=== PATIENT | male | born 1945 | race Caucasian/White ===

== ENCOUNTER 2016-07-11 21:05 | Inpatient (IN) ==
--- NOTE | 2016-07-11 21:48 | Emergency Department Note ---
Addendum entered and electronically signed by Gerard Amos DO 07/11/16 23:03 : Accepted by Dr nSider for admission Original Note: Disposition Clinical Impression: Cough Chest pain Qualifiers: Chest pain type: unspecified Qualified Code(s): R07.9 - Chest pain, unspecified Syncope Qualifiers: Syncope type: unspecified Qualified Code(s): R55 - Syncope and collapse Disposition: Still a Patient Condition: Undetermined General Adult HPI - General Chief complaint: ED Chest Pain Stated complaint: chest pain/cough Time Seen by Provider: 07/11/16 21:25 Source: patient, family Limitations: no limitations Nursing Notes Reviewed: Yes Vital Signs Reviewed: Yes - History of Present Illness HPI Narrative: 8-year-old male who reports he had onset of chest pain last night. He said his left side of his chest. He also admits it is pleuritic in nature. His and reports that this morning at 5:30 in the morning he had an episode of syncope after getting up to use the restroom. He does state he hit his head. Since that time he has had decreased level of alertness. He also reports he has had a cough for the last few days. His only current medical problems are diabetes and neuropathy. He takes metformin and glipizide. He denies having a fever, nausea, vomiting, diarrhea, abdominal pain Radiation: non-radiation Pain Severity: moderate Pain Scale: 4 Consistency: constant Improves with: nothing Worsens with: other (deep breath) Associated symptoms: Reports: denies other symptoms Treatments Prior to Arrival: none - Related Data Allergies Allergy/AdvReac Type Severity Reaction Status Date / Time No Known Allergies Allergy Verified 07/11/16 21:10 All systems ED: reviewed and negative except as stated. Constitutional: Denies: fever Eyes: Denies: vision change ENT ED: Denies: throat pain Cardiovascular: Reports: chest pain Respiratory: Reports: cough Gastrointestinal: Denies: abdominal pain, nausea, vomiting Musculoskeletal: Denies: neck pain Integumentary: Denies: rash Endocrine: Reports: fatigue Past Medical History - Past Medical History Medical history: Reports: diabetes, other Psychiatric history: Reports: PTSD - Social History Smoking Status: Never smoker Smokeless Tobacco Status: No Alcohol use: Reports: none Drug use: Reports: none Physical Exam - General Limitations: no limitations General appearance: alert, in no apparent distress - Head Head exam: atraumatic - Eye Eye exam: Present: normal appearance, PERRL, EOMI - ENT ENT exam: normal exam, normal oropharynx - Neck Neck exam: Present: normal inspection, full ROM - Chest Chest inspection: Present: normal inspection - Respiratory Respiratory exam: Present: normal lung sounds bilaterally. Absent: respiratory distress - Cardiovascular Cardiovascular exam: Present: regular rate, normal rhythm - Abdominal Exam Abdominal exam: Present: soft, Non-Tender - Extremities Exam Extremities exam: Present: normal inspection - Expanded Lower Extremity Exam Hip/Pelvis exam: Present: normal inspection - Neurological Exam Neurological exam: Present: alert (but fatigued), oriented X3, CN II-XII intact - Skin Skin exam: Present: warm, dry Course Course Narrative: Due to chest pain and syncope I have high index of suspicion for cardiac etiology. I also need to rule out intracranial abnormality after his fall and decreased level of responsiveness. He will get a CT scan of his head and cervical spine in addition to a cardiac workup. I will also draw blood cultures and an ammonia level due to his altered state. His vital signs are stable and he is in no acute distress. His EKG does not show a acute abnormality. - Reevaluation(s) Reevaluation #1: The patient has been signed out to the night team specifically Dr Hernandez. He will follow up on lab results and make final disposition Vital Signs Temperature 99.2 F 07/11/16 21:10 Pulse Rate 96 07/11/16 21:10 Respiratory Rate 16 07/11/16 21:10 Blood Pressure 144/75 07/11/16 21:10 O2 Sat by Pulse Oximetry 97 07/11/16 21:10 Temperature 99.2 F 07/11/16 21:10 Pulse Rate 85 07/11/16 22:52 Respiratory Rate 16 07/11/16 22:52 Blood Pressure 106/54 07/11/16 22:52 O2 Sat by Pulse Oximetry 96 07/11/16 22:52 Oxygen Delivery Oxygen Delivery Room Air Medical Decision Making - Medical Records Medical records reviewed: Yes I reviewed the patient's medical records. - Lab Data Lab results reviewed: Yes I reviewed the patient's lab results. Result diagrams: 07/11/16 21:45 07/11/16 21:45 Lab Results 01/30/17 01/30/17 01/30/17 Range/Units 21:22 21:45 21:45 WBC (4.3-11.1) K/mcL RBC (4.19-5.50) M/mcL Hgb (12.9-16.9) g/dL Hct (37.5-50.1) % MCV (83.0-100.0) fL MCH (28.0-33.3) pg MCHC (31.6-35.5) g/dL RDW (11.5-14.5) % Plt Count (140-400) K/mcL MPV (9.4-12.4) fL Immature Gran % (0-4) % Seg Neutrophils % % Lymphocytes % % Monocytes % % Eosinophils % % Basophils % % Neutrophils # (1.6-8.9) K/mcL Lymphocytes # (0.6-4.6) K/mcL Monocytes # (0.0-1.3) K/mcL Eosinophils # (0.0-0.6) K/mcL Basophils # (0.0-0.2) K/mcL PT 13.8 H (9.4-12.1) Seconds INR 1.3 APTT 31.8 (26.0-36.0) Seconds Sodium (136-145) mEq/L Potassium (3.5-4.5) mEq/L Chloride (98-109) mEq/L Carbon Dioxide (19-29) mEq/L BUN (8-26) mg/dL Creatinine (0.72-1.25) mg/dL Est GFR ( Amer) (> 60) Est GFR (Non-Af Amer) (> 60) BUN/Creatinine Ratio (6-26) Glucose (70-99) mg/dL POC Glucose 279 H (58-89) Calculated Osmolality (280-300) Calcium (8.6-10.8) mg/dL Total Bilirubin (0.2-1.2) mg/dL Direct Bilirubin (0.0-0.5) mg/dL Indirect Bilirubin (0.0-1.2) mg/dL AST (5-34) Units/L ALT (0-55) Units/L Alkaline Phosphatase (38-126) Units/L Ammonia (18-72) mcmol/L Troponin I (0-0.03) ng/mL B-Natriuretic Peptide 19 (0-100) pg/mL Serum Total Protein (6.0-8.3) g/dL Albumin (3.5-5.0) g/dL Globulin (2.4-3.5) g/dL Albumin/Globulin Ratio (1.1-2.2) 07/11/16 07/11/16 07/11/16 Range/Units 21:45 21:45 21:45 WBC 6.0 (4.3-11.1) K/mcL RBC 4.86 (4.19-5.50) M/mcL Hgb 14.6 (12.9-16.9) g/dL Hct 42.6 (37.5-50.1) % MCV 87.7 (83.0-100.0) fL MCH 30.0 (28.0-33.3) pg MCHC 34.3 (31.6-35.5) g/dL RDW 13.2 (11.5-14.5) % Plt Count 133 L (140-400) K/mcL MPV 9.3 L (9.4-12.4) fL Immature Gran % 0.3 (0-4) % Seg Neutrophils % 76.5 % Lymphocytes % 12.9 % Monocytes % 10.1 % Eosinophils % 0.0 % Basophils % 0.2 % Neutrophils # 4.6 (1.6-8.9) K/mcL Lymphocytes # 0.8 (0.6-4.6) K/mcL Monocytes # 0.6 (0.0-1.3) K/mcL Eosinophils # 0.0 (0.0-0.6) K/mcL Basophils # 0.0 (0.0-0.2) K/mcL PT (9.4-12.1) Seconds INR APTT (26.0-36.0) Seconds Sodium 131 L (136-145) mEq/L Potassium 4.1 (3.5-4.5) mEq/L Chloride 96 L (98-109) mEq/L Carbon Dioxide 22 (19-29) mEq/L BUN 17 (8-26) mg/dL Creatinine 1.15 (0.72-1.25) mg/dL Est GFR ( Amer) > 60 (> 60) Est GFR (Non-Af Amer) > 60 (> 60) BUN/Creatinine Ratio 15 (6-26) Glucose 281 H (70-99) mg/dL POC Glucose (58-89) Calculated Osmolality 284 (280-300) Calcium 9.1 (8.6-10.8) mg/dL Total Bilirubin (0.2-1.2) mg/dL Direct Bilirubin (0.0-0.5) mg/dL Indirect Bilirubin (0.0-1.2) mg/dL AST (5-34) Units/L ALT (0-55) Units/L Alkaline Phosphatase (38-126) Units/L Ammonia (18-72) mcmol/L Troponin I 0.00 (0-0.03) ng/mL B-Natriuretic Peptide (0-100) pg/mL Serum Total Protein (6.0-8.3) g/dL Albumin (3.5-5.0) g/dL Globulin (2.4-3.5) g/dL Albumin/Globulin Ratio (1.1-2.2) 07/11/16 07/11/16 Range/Units 21:45 22:10 WBC (4.3-11.1) K/mcL RBC (4.19-5.50) M/mcL Hgb (12.9-16.9) g/dL Hct (37.5-50.1) % MCV (83.0-100.0) fL MCH (28.0-33.3) pg MCHC (31.6-35.5) g/dL RDW (11.5-14.5) % Plt Count (140-400) K/mcL MPV (9.4-12.4) fL Immature Gran % (0-4) % Seg Neutrophils % % Lymphocytes % % Monocytes % % Eosinophils % % Basophils % % Neutrophils # (1.6-8.9) K/mcL Lymphocytes # (0.6-4.6) K/mcL Monocytes # (0.0-1.3) K/mcL Eosinophils # (0.0-0.6) K/mcL Basophils # (0.0-0.2) K/mcL PT (9.4-12.1) Seconds INR APTT (26.0-36.0) Seconds Sodium (136-145) mEq/L Potassium (3.5-4.5) mEq/L Chloride (98-109) mEq/L Carbon Dioxide (19-29) mEq/L BUN (8-26) mg/dL Creatinine (0.72-1.25) mg/dL Est GFR ( Amer) (> 60) Est GFR (Non-Af Amer) (> 60) BUN/Creatinine Ratio (6-26) Glucose (70-99) mg/dL POC Glucose (58-89) Calculated Osmolality (280-300) Calcium (8.6-10.8) mg/dL Total Bilirubin 0.8 (0.2-1.2) mg/dL Direct Bilirubin 0.3 (0.0-0.5) mg/dL Indirect Bilirubin 0.5 (0.0-1.2) mg/dL AST 19 (5-34) Units/L ALT 23 (0-55) Units/L Alkaline Phosphatase 88 (38-126) Units/L Ammonia 24 (18-72) mcmol/L Troponin I (0-0.03) ng/mL B-Natriuretic Peptide (0-100) pg/mL Serum Total Protein 7.6 (6.0-8.3) g/dL Albumin 3.7 (3.5-5.0) g/dL Globulin 3.9 H (2.4-3.5) g/dL Albumin/Globulin Ratio 0.9 L (1.1-2.2) - Radiology Data Radiology results reviewed: Yes I reviewed the patient's radiology results. - EKG Data EKG #1 EKG attestation: Yes I reviewed and interpreted this EKG. EKG shows normal: sinus rhythm Rate: normal Rhythm: NSR Alto/QRS: normal Interpretation: no acute changes Attestation Statement - Attestation Attestation: Dr Donaldson note: Pt evaluated , conjunction w/ resident Dr Amos; please see his documentation. I agree the patient's treatment and disposition. Blood work has been reviewed. CT scan of the head and neck are unremarkable for any traumatic injury, lesions in the skull were reported are not traumatic in nature. Patient has no symptoms at the time of my evaluation. Syncope versus near syncope last night after getting off the toilet. Generalized weakness persist today. Left anterior chest pain with cough and movement only. No fever no vomiting or diarrhea. Admitted in stable and improved condition to the hospitalist ; no indication for additional testing prior to admission.
[2016-07-11 21:52] LABS: Basophils % 0.2 %; Hematocrit 42.6 % (37.5-50.1); Hemoglobin 14.6 g/dL (12.9-16.9); Immature Granulocytes % 0.3 % (0-4); Lymphocytes # 0.8 K/mcL (0.6-4.6); Lymphocytes % 12.9 %; Mean Corpuscular HGB Conc 34.3 g/dL (31.6-35.5); Mean Corpuscular Volume 87.7 fL (83.0-100.0); Mean Platelet Volume 9.3 fL (9.4-12.4); Monocytes # 0.6 K/mcL (0.0-1.3); Monocytes % 10.1 %; Neutrophils # 4.6 K/mcL (1.6-8.9); Platelet Count 133 K/mcL (140-400); Red Blood Count 4.86 M/mcL (4.19-5.50); Red Cell Distribution Width 13.2 % (11.5-14.5); Segmented Neutrophils % 76.5 %
[2016-07-11 21:58] LABS: INR 1.3; Prothrombin Time 13.8 Seconds (9.4-12.1)
[2016-07-11 22:00] LABS: Activated Partial Thrombo Time 31.8 Seconds (26.0-36.0)
[2016-07-11 22:05] LABS: BUN/Creatinine Ratio 15 (6-26); Blood Urea Nitrogen 17 mg/dL (8-26); Calcium 9.1 mg/dL (8.6-10.8); Carbon Dioxide 22 mEq/L (19-29); Chloride 96 mEq/L (98-109); Glucose 281 mg/dL (70-99); Osmolality,Calculated 284 (280-300); Potassium 4.1 mEq/L (3.5-4.5); Sodium 131 mEq/L (136-145); eGFR For African Americans > 60 (> 60); eGFR For Non-African Americans > 60 (> 60)
[2016-07-11 22:41] LABS: Albumin 3.7 g/dL (3.5-5.0); Albumin/Globulin Ratio 0.9 (1.1-2.2); Bilirubin,Direct 0.3 mg/dL (0.0-0.5); Bilirubin,Indirect 0.5 mg/dL (0.0-1.2); Bilirubin,Total 0.8 mg/dL (0.2-1.2); Globulin 3.9 g/dL (2.4-3.5); Total Protein 7.6 g/dL (6.0-8.3)
[2016-07-11] MEDS ORDERED: Aspirin 325 MG TABLET PO ONE (23:03)
[2016-07-12] MEDS ORDERED: Dextrose Gel 15 GM PO PRN ×2 (05:55)
[2016-07-12] MEDS ORDERED: *HR* Dextrose 50 % in Water (Syg) 50 ML SYRINGE IVP PRN (05:55)
[2016-07-12] MEDS ORDERED: D5% in Water 1,000 ML IV PRN (05:55)
[2016-07-12 06:26] LABS: Chol/HDL Ratio 4.2 (0-4.9)
[2016-07-12] MEDS ORDERED: *HR* HYDROcodone/Acet 5/325 mg TABLET PO PRN (07:58)
[2016-07-12] MEDS ORDERED: Ondansetron 4 MG/2 ML VIAL IVP PRN (07:58)
[2016-07-12] MEDS ORDERED: Naloxone 0.4 MG/ML INJ IVP PRN (07:58)
[2016-07-12] MEDS ORDERED: 0.9 % Sodium Chloride 1,000 ML IVC STA (08:01)
--- NOTE | 2016-07-12 08:13 | Internal Med History&Physical ---
Date of Encounter: 07/12/16 Time of Encounter: 07:30 Assessment and Plan (1) Pre-syncope Current visit: Yes Status: Acute At 5 AM this morning, patient felt very weak and lightheaded, then fell onto the floor. No loss of consciousness. Likely secondary to dehydration from infection. troponin negative x2. EKG reviewed by me and showed SR 93, no acute ischemic changes. (2) Dehydration Current visit: Yes Status: Acute Secondary to infection. Stat IVF bolus, and continue IVF maintenance at 100 ml/ hr. (3) Fever Current visit: Yes Status: Acute Patient presented with symptoms of Upper respiratory symptoms, fever, and general malaise followed by productive cough, and 1-episode of hemoptysis. Chest x-ray showed no acute process. CT of the cervical spine revealed a focal pleural thickening in the posterolateral right upper lobe. Suspicion for influenza with superimposed pneumonia versus acute bronchitis. Negative chest x-ray could be secondary to dehydration. I will start empiric IV ceftriaxone. Check influenza test, CT of the chest after IV fluid hydration. Tylenol as needed. Addendum: positive test for influenza. add IV vancomycin until final results of Ct chest. Qualifiers: Fever type: unspecified Qualified Code(s): R50.9 - Fever, unspecified (4) Cough Current visit: Yes Status: Acute plan as above. (5) Acute hyponatremia Current visit: Yes Status: Acute Mild acute hyponatremia. Secondary to dehydration from infection. IV fluids. Close monitor. (6) Hypochloremia Current visit: Yes Status: Acute Mild hypochloremia. Secondary to dehydration from infection. (7) Pleuritic chest pain Current visit: Yes Status: Acute Likely secondary to pneumonia. Tylenol as needed. (8) Diabetes Current visit: Yes Status: Acute Patient takes metformin and glipizide at home. Hypertension on admission could be secondary to infection. Continue insulin sliding scale and diabetic diet. 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 Zambrano is a 71 year old male with past medical history significant for diabetes presented after falling at home. Patient woke up at 5 PM and went to the bathroom, while in the bathroom he felt a sudden onset of generalized weakness and lightheadedness, he tried to grab onto the towel jeffrey but he broke it and fell onto the floor. He denies hitting his head. No syncope. He reports a 2-day history of upper respiratory symptoms including runny nose, fever (temp of 102 yesterday at 8 PM) and general malaise followed by productive cough. He describes cough of greenish sputum and one episode of bloody-tinged sputum. Positive pleuritic left-sided chest pain. No shortness of breath. He denies any sick contacts. No recent travel. No history of COPD or asthma. He has cats at home but they are healthy. He reports hayfever and allergies from time to time but this is different. No smoking. No abdominal pain. No diarrhea. No other bleeding. No headache. No focal deficit. No vision problems. No rash. No joint pains. In the ER, temperature was 99.2. He received aspirin. Currently, the patient feels very weak. Past Med Surg Social Fam HX - Past Medical History Medical history: diabetes, other Psychiatric history: PTSD - Social History Smoking Status: Never smoker Smokeless Tobacco Status: No Alcohol use: none Drug use: none - Family History Mother Hx Family Musculoskeletal Disorders: Yes (diabetes) Internal Medicine - H&P: Meds Aspirin Enteric Coated [Aspirin EC] 81 mg PO DAILY 07/12/16 [History] Cetirizine HCl [All Day Allergy] 10 mg PO DAILY 07/12/16 [History] Flaxseed Oil [[place]-3 Flaxseed Oil] 1 each PO DAILY 07/12/16 [History] Gabapentin [Neurontin] 600 mg PO BID 07/12/16 [History] Garlic [Garlic] 1 each PO DAILY 07/12/16 [History] GlipiZIDE [Glipizide] 15 mg PO BID 07/12/16 [History] Gluc Webber/Chondro Webber A/Vit C/Mn [Glucosamine Chondroitin Tab] 1 each PO BID [History] GuaiFENesin/Pseudophedrine [Mucinex D] 60 mg PO DAILY PRN 07/12/16 [History] Ketotifen Fumarate [Eye Itch Relief] 1 drop OP BID 07/12/16 [History] Lidocaine 4% CRM (LMX) [Lmx 4] 1 each .ROUTE TID 07/12/16 [History] Lysine [Lysine] 1 each PO BID 07/12/16 [History] Metformin [Glucophage] 1,000 mg PO BID 07/12/16 [History] Methocarbamol [Robaxin-750] 750 mg PO TID PRN 07/12/16 [History] Mv-Mn/FA/Vit K/Lycop/Lut/Coq10 [Daily Multivitamin Capsule] 1 each PO DAILY [History] Omeprazole 20 mg PO DAILY 07/12/16 [History] Anh's Wort 1 each PO DAILY 07/12/16 [History] Tamsulosin HCl [Flomax] 0.8 mg PO HS 07/12/16 [History] Allergies No Known Allergies Allergy (Verified 07/11/16 21:10) All Systems PM: A 10-system review of systems was performed and is negative for pertinent findings except as documented above in the HPI. - Constitutional Vitals: Temp Pulse Resp BP Pulse Ox 100.3 F H 78 16 105/64 94 L 07/12/16 07:10 07/12/16 07:10 07/12/16 07:10 07/12/16 07:10 07/12/16 07:10 General appearance: Present: cooperative, A&O X 3, pleasant, no acute distress, answers questions appropriately - Eye Eye exam: Present: PERRL. Absent: sclera anicteric - Neck Neck exam general surgery: Present: supple, trachea midline. Absent: lymphadenopathy - Respiratory Respiratory exam: Absent: CTAB - Cardiovascular Cardiovascular exam: Present: RRR - GI/Abdominal GI/Abdominal exam: Present: normal bowel sounds, soft. Absent: distended, tenderness - Extremities Exam Extremities exam: Absent: pedal edema - Back Exam Back exam: Absent: CVA tenderness (L), CVA tenderness (R) - Neurological Exam Neurological exam: Present: alert, oriented X3. Absent: facial droop, speech deficit - Skin Skin exam: Absent: rash Internal Med - H&P Results - Labs CBC & Chem 7: 07/12/16 06:06 07/11/16 21:45 Labs: Cardiac Enzymes 07/12/16 Range/Units 06:06 Troponin I 0.01 (0-0.03) ng/mL - VTE Reasons for not Prescribing Prophylaxis: Treatment not Indicated - Low risk for VTE
[2016-07-12 08:16] LABS: Basophils % 0.3 %; Eosinophils % 0.2 %; Hemoglobin 14.2 g/dL (12.9-16.9); Immature Granulocytes % 0.5 % (0-4); Lymphocytes # 1.1 K/mcL (0.6-4.6); Lymphocytes % 17.3 %; Mean Corpuscular HGB Conc 34.6 g/dL (31.6-35.5); Mean Corpuscular Hemoglobin 30.3 pg (28.0-33.3); Mean Corpuscular Volume 87.6 fL (83.0-100.0); Mean Platelet Volume 9.8 fL (9.4-12.4); Monocytes # 0.7 K/mcL (0.0-1.3); Monocytes % 11.1 %; Neutrophils # 4.3 K/mcL (1.6-8.9); Platelet Count 129 K/mcL (140-400); Red Blood Count 4.68 M/mcL (4.19-5.50); Red Cell Distribution Width 13.2 % (11.5-14.5); Segmented Neutrophils % 70.6 %
[2016-07-12 08:24] LABS: Magnesium 1.9 mg/dL (1.6-2.6); Phosphorous 3.7 mg/dL (2.3-4.7)
[2016-07-12] MEDS: Acetaminophen 325 MG TABLET PO PRN ×2 (08:42→20:47)
[2016-07-12] MEDS: Insulin LISPRO 300 UNITS/3 ML VIAL SQ SCH ×3 (08:43→17:27)
[2016-07-12] MEDS: 0.9 % Sodium Chloride 1,000 ML IVC SCH (08:48)
[2016-07-12] MEDS ORDERED: Vancomycin 1,250 MG in D5% in Water 250 ML IVPB SCH ×2 (10:00→23:00)
[2016-07-12] MEDS ORDERED: Vancomycin 1,750 MG in D5% in Water 500 ML IVPB ONE (11:00)
[2016-07-12 11:46] LABS: Bilirubin,Urine Negative (Negative); Blood,Urine Negative (Negative); Clarity,Urine Clear (Clear); Color,Urine Yellow (Yellow); Glucose,Urine (UA) 100 mg/dL (Normal); Ketones,Urine Negative (Negative); Leukocyte Esterase,Urine Negative (Negative); Nitrite,Urine Negative (Negative); PH,Urine 6.5 pH Units (5.0-8.0); Protein,Urine Negative (Neg-Trace); Specific Gravity,Urine 1.012 (1.010-1.025); Urobilinogen,Urine Normal (Normal)
[2016-07-12] MEDS: *HR* Heparin 5,000 UNIT/ML VIAL SQ SCH (17:27)
[2016-07-12] MEDS ORDERED: Insulin LISPRO 300 UNITS/3 ML VIAL SQ SCH (21:00)
--- NOTE | 2016-07-12 21:27 | Electrocardiograph Report ---
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
[2016-07-12] MEDS ORDERED: Gabapentin 300 MG CAPSULE PO ONE (22:11)
[2016-07-13] MEDS: 0.9 % Sodium Chloride 1,000 ML IVC SCH ×2 (01:11→10:21)
[2016-07-13] MEDS: Acetaminophen 325 MG TABLET PO PRN (05:35)
[2016-07-13] MEDS: *HR* Heparin 5,000 UNIT/ML VIAL SQ SCH ×2 (05:35→10:20)
[2016-07-13 05:52] LABS: Basophils % 0.2 %; Eosinophils % 0.7 %; Hematocrit 40.3 % (37.5-50.1); Hemoglobin 13.4 g/dL (12.9-16.9); Immature Granulocytes % 0.3 % (0-4); Lymphocytes # 1.4 K/mcL (0.6-4.6); Lymphocytes % 23.3 %; Mean Corpuscular HGB Conc 33.3 g/dL (31.6-35.5); Mean Corpuscular Hemoglobin 29.4 pg (28.0-33.3); Mean Corpuscular Volume 88.4 fL (83.0-100.0); Mean Platelet Volume 9.7 fL (9.4-12.4); Monocytes # 0.5 K/mcL (0.0-1.3); Platelet Count 123 K/mcL (140-400); Red Blood Count 4.56 M/mcL (4.19-5.50); Segmented Neutrophils % 66.5 %
[2016-07-13 06:13] LABS: BUN/Creatinine Ratio 16 (6-26); Blood Urea Nitrogen 14 mg/dL (8-26); Calcium 8.7 mg/dL (8.6-10.8); Carbon Dioxide 24 mEq/L (19-29); Chloride 101 mEq/L (98-109); Glucose 138 mg/dL (70-99); Magnesium 1.9 mg/dL (1.6-2.6); Osmolality,Calculated 283 (280-300); Phosphorous 3.4 mg/dL (2.3-4.7); Potassium 3.9 mEq/L (3.5-4.5); Sodium 135 mEq/L (136-145); eGFR For African Americans > 60 (> 60); eGFR For Non-African Americans > 60 (> 60)
--- NOTE | 2016-07-13 09:51 | ECHO - Doppler Report ---
Echocardiogram Name: Robbie Zambrano Date of Study: 07/12/2016 Date: 1945 Ht: 72.0 in Medical Record#: [id number] Age: 71 Wt: 200.0 lb Gender: Male BSA: 2.13 Order #: [id number] Location: [facility] Room #: [id number] Reading Physician: Deshaun Farley DO, GAGE, SHAAN OTOOLE Used Car Sales Supervisor: Katina Nuñez Ordering Physician: Khoa Snider MD Primary Physician: [facility] Indications: Syncope Impressions: LVEF 60-65%. Normal LV chamber size, wall thickness and function. Mild left ventricular diastolic dysfunction. Normal right ventricular structure and function. No evidence of pulmonary hypertension. No significant valvular dysfunction. Left Ventricular Wall Motion: Rest Echo Findings All wall segments showed normal motion. Findings: Study Quality * Technically adequate exam. ECG Findings * Normal sinus rhythm. Left Ventricle * LVEF 60-65%. * Normal LV chamber size, wall thickness and function. * Mild left ventricular diastolic dysfunction. Right Ventricle * Normal right ventricular structure and function. Left Atrium * Mildly dilated left atrium. Right Atrium * Mildly dilated right atrium. Interatrial Septum * No evidence of PFO by color Doppler. Aortic Valve * Trileaflet aortic valve with normal function. * No aortic regurgitation. * No aortic stenosis. Mitral Valve * Normal mitral valve structure and function. * No mitral regurgitation. * No mitral stenosis. Tricuspid Valve * Normal tricuspid valve structure and function. * Trace tricuspid regurgitation. * No evidence of pulmonary hypertension. Pulmonic Valve * Normal pulmonic valve structure and function. * No pulmonic regurgitation. Aorta * Normally sized aortic root. Pericardium * The pericardium appears normal. IVC * Normal IVC dimensions and inspiratory collapse. Pulmonary Artery * Normal visualized portions of the main pulmonary artery. History Diabetes Hypercholesteremia Family History of CAD Measurements: BP: 119/ 61 2D Normal Values RVIDd: 3.40 cm <2.7 cm IVSd: .80 cm 0.6 - 1.0 cm LVIDd: 4.40 cm 3.7 - 5.6 cm LVPWd: 1.00 cm 0.6 - 1.1 cm LVIDs: 2.80 cm 1.5 - 3.6 cm AO: 2.90 cm < 4.0 cm LA: 3.50 cm 2.0 - 4.0cm %FS: 36.40 cm >25 % LA volume: 52 Mitral Valve Peak E:.78 m/sec Peak A:.81 m/sec E/A Ratio:1 Peak E' Lat Jorge:10.9 cm/s Peak E' Med Jorge:8.87 cm/s E/E' Lat Ratio:7.1 E/E' Med Ratio:8.8 Tricuspid Valve TV Regurg Peak Grad: 27.00mmHg TV Regurg Peak Jorge: 2.62m/sec Updated by Deshaun Farley DO, FACCarlos, SHAAN OTOOLE on 07/13/2016 9:46:38 AM electronically signed on 07/13/2016 9:47:09 AM with status of Final Wall Motion Gregory: 1=Normal, 2=Hypokinesis, 3=Akinesis, 4=Dyskinesis, 5=Aneurysmal, 6=Hyperkinetic, X=Not Visualized (Blank)=Missing
[2016-07-13] MEDS: Insulin LISPRO 300 UNITS/3 ML VIAL SQ SCH ×2 (10:20→12:41)
[2016-07-13 10:54] VITALS: BP 117/68
--- NOTE | 2016-07-13 11:17 | Discharge Summary ---
Date of Encounter: 07/13/16 Time of Encounter: 11:15 - Discharge Diagnosis (1) Influenza A Priority: Primary Status: Acute (2) Acute hyponatremia Priority: Secondary Status: Acute (3) Dehydration Priority: Secondary Status: Acute (4) Diabetes Priority: Secondary Status: Acute Qualifiers: Diabetes mellitus type: type 2 Diabetes mellitus complication status: with hyperglycemia Diabetes mellitus oil heaterman insulin use: with oil heaterman use Qualified Code(s): E11.65 - Type 2 diabetes mellitus with hyperglycemia; Z79.4 - technician terminal and repeater (current) use of insulin (5) Fever Priority: Secondary Status: Acute Qualifiers: Fever type: other Qualified Code(s): R50.81 - Fever presenting with conditions classified elsewhere (6) Hypochloremia Priority: Secondary Status: Acute (7) Pleuritic chest pain Priority: Secondary Status: Acute (8) Pre-syncope Priority: Secondary Status: Acute - Discharge Medications Prescriptions: GuaiFENesin/Dextromethorphan [Robitussin/DM] 10 ml PO Q6HR PRN #1 syrup PRN Reason: Cough Oseltamivir [Tamiflu] 75 mg PO BID #8 capsule Home Medications: Aspirin Enteric Coated [Aspirin EC] 81 mg PO DAILY 07/12/16 [History] Cetirizine HCl [All Day Allergy] 10 mg PO DAILY 07/12/16 [History] Flaxseed Oil [Molena-3 Flaxseed Oil] 1,000 mg PO DAILY 07/12/16 [History] Gabapentin [Neurontin] 600 mg PO BID 07/12/16 [History] Garlic 1 mg PO DAILY 07/12/16 [History] GlipiZIDE [Glipizide] 15 mg PO BID 07/12/16 [History] Gluc Webber/Chondro Webber A/Vit C/Mn [Glucosamine Chondroitin Tab] 1 tab PO BID [History] Ketotifen Fumarate [Eye Itch Relief] 1 drop BOTH EYES BID 07/12/16 [History] Lidocaine 4% CRM (LMX) [Lmx 4] 1 appl TP TID 07/12/16 [History] Lysine 1,000 mg PO BID 07/12/16 [History] Metformin [Glucophage] 1,000 mg PO BID 07/12/16 [History] Methocarbamol [Robaxin-750] 750 mg PO TID PRN 07/12/16 [History] Mv-Mn/FA/Vit K/Lycop/Lut/Coq10 [Daily Multivitamin Capsule] 1 cap PO DAILY 07/12 [History] Omeprazole 20 mg PO DAILY 07/12/16 [History] Boyce's Wort 300 mg PO DAILY 07/12/16 [History] Tamsulosin HCl [Flomax] 0.8 mg PO HS 07/12/16 [History] GuaiFENesin/Dextromethorphan [Robitussin/DM] 10 ml PO Q6HR PRN #1 syrup [Rx] Oseltamivir [Tamiflu] 75 mg PO BID #8 capsule 07/13/16 [Rx] Pseudoephedrine [Sudafed] 60 mg PO DAILY 07/13/16 [History] Allergies/Adverse Reactions: Allergies No Known Allergies Allergy (Verified 07/11/16 21:10) Date of admission: 07/12/16 17:24 Primary care physician: PCP [facility] Discharging clinician: Isa Roberts Anticipated date of discharge: 07/13/16 - Patient Status Disposition: Home, Self-Care Condition: Good Functional capacity at discharge: independent ambulation Overall status at discharge: patient is progressing back to baseline - Discharge Instructions [facility] With: [facility] Care Provider[facility] - (In 1-2 weeks) - Diet and Activity Activity: resume usual activities as tolerated Diet: diabetic diet, low fat, low cholesterol, low salt diet Hospital course: Mr. Zambrano is a 71 year old male patient with a history of diabetes mellitus type 2 who was observed in the hospital after presenting with symptoms suggestive of presyncope along with upper respiratory symptoms with fever, cough and pleuritic chest pain. He was evaluated for this with a chest x-ray and CT scan of the chest was did not show any signs suggestive of pneumonia. Is positive for influenza A and was started on treatment for Tamiflu. He also underwent a 2-D echocardiogram which did not show any cardiac abnormalities that would cause his chest pain. He had normal ejection fraction. His symptoms have now improved. He did receive intravenous hydration. He continues to have cough but no longer has any fever. He is stable to be discharged home and will complete a short course of Tamiflu and follow up with his primary care provider for further management. - Time Spent with Patient Total time spent providing and/or coordinating discharge services: Less than 30 minutes (25 min) - Constitutional Vitals: Temp Pulse Resp BP Pulse Ox 97.3 F L 67 16 117/68 96 07/13/16 10:47 07/13/16 10:47 07/13/16 10:47 07/13/16 10:47 07/13/16 10:47 General appearance: Present: cooperative, A&O X 3, pleasant, no acute distress, answers questions appropriately - Respiratory Respiratory exam: Present: CTAB. Absent: accessory muscle use, rales, rhonchi, wheezes - Cardiovascular Cardiovascular exam: Present: RRR, +S1, +S2. Absent: diastolic murmur, gallop, rubs, systolic murmur - GI/Abdominal GI/Abdominal exam: Present: normal bowel sounds, soft, no peritoneal signs. Absent: distended, tenderness - Extremities Exam Extremities exam: Present: warm, radial pulses palpable and symetrical. Absent : calf tenderness, cyanotic, pedal edema - Skin Skin exam: Present: dry, intact - VTE Reasons for not Prescribing Prophylaxis: Treatment not Indicated - Low risk for VTE - Attending Attestation This document has been at least partially created by [employer] recognition technology by Dr. Roberts. Errors in grammar, wording or other phrases may exist. If errors are found after the documentation is signed, they will be addressed individually in the addendum section of this document when appropriate.
[2016-07-13] MEDS ORDERED: Aminoglycoside Consult 1 EACH MC ONE (13:15)
== END 2016-07-13 13:16 | disposition home or self-care (01) | DRG 194 ==
LOC: 3BNU 21:05 → EMEROO 21:05 → 3BNU 23:43 → SUATTDRO 07-12 17:24
PROVIDERS: ADMIT Internal Medicine; ATTEND Internal Medicine